=== PATIENT | male | born 1945 | race Asian ===

== ENCOUNTER 2019-03-27 11:46 | Outpatient (CLI) | payer OTHER | END 2019-03-27 23:59 | disposition home or self-care (01) | LOC: STAR 11:46 | PROVIDERS: ATTEND Neurological Surgery | DX: Z01.818 Encounter for other preprocedural examination (principal); M48.02 Spinal stenosis, cervical region | CPT/HCPCS: 36415; 71046; 80053; 81003; 85025; 85610; 85730; 93005 ==

== ENCOUNTER 2019-04-02 05:38 | Inpatient (IN) | payer OTHER ==
[~2019-04-02] VITALS: Ht 170.2 cm; Wt 66.9 kg
[2019-04-03 10:15] VITALS: BP 138/74
== END 2019-04-03 11:22 | disposition home or self-care (01) | DRG 472 ==
LOC: ORIP 05:38 → 4NOR 11:11 → DCLOUNGE 04-03 11:04
PROVIDERS: ADMIT Neurological Surgery; ATTEND Neurological Surgery
PROC: 0RG20A0 Fusion of 2 or more Cervical Vertebral Joints with Interbody Fusion Device, Anterior Approach, Anterior Column, Open Approach (ICD-10-PCS; principal; 2019-04-02)
PROC: 0RB30ZZ Excision of Cervical Vertebral Disc, Open Approach (ICD-10-PCS; 2019-04-02)
PROC: 01N10ZZ Release Cervical Nerve, Open Approach (ICD-10-PCS; 2019-04-02)
DX: M50.11 Cervical disc disorder with radiculopathy, high cervical region (principal); G95.29 Other cord compression; M47.22 Other spondylosis with radiculopathy, cervical region; M48.02 Spinal stenosis, cervical region; M19.90 Unspecified osteoarthritis, unspecified site; E11.9 Type 2 diabetes mellitus without complications; F32.9 Major depressive disorder, single episode, unspecified; K21.9 Gastro-esophageal reflux disease without esophagitis; G89.29 Other chronic pain; E78.5 Hyperlipidemia, unspecified
CPT/HCPCS: 36415; 72040; 82962; 86850; 86900; C1713; G0378; J0690; J1100; J2405; J2704; J2710; J3010; J3480; C1762; J0330; J0360; J2800; J7120

== ENCOUNTER 2019-08-28 12:35 | Outpatient (CLI) | payer OTHER ==
[~2019-08-28 12:35] MED LIST: AMIT25TA PO; AMLO-150 PO; ASPI-496 PO; ATOR40TA78 PO; CETI10CA PO; CHOL10003 PO; CYCL-259 PO; FAMO-79 PO; HYDR-36 PO; IBUP-1223 PO; LOSA100T14 PO; METF850T10 PO; METO-99 PO; PANT40TA5 PO; PRED10TA PO; SODI100P18 DT; VENL100T PO
[2019-08-28 13:50] LABS: BASOPHILS # (AUTO) 0.03 x10^3/uL (0-0.1); BASOPHILS % (AUTO) 0 % (0-1); EOSINOPHILS # (AUTO) 0.04 x10^3/uL (0-0.4); EOSINOPHILS % (AUTO) 1 % (1-7); LYMPHOCYTES # (AUTO) 1.14 x10^3/uL (1-3.4); LYMPHOCYTES % (AUTO) 14 % (22-44); MD NO; MEAN CORPUSCULAR HEMOGLOBIN 32.3 pg (27.5-34.5); MEAN CORPUSCULAR HGB CONC 33.2 g/dL (33.2-36.2); MEAN CORPUSCULAR VOLUME 97.2 fL (81-97); MEAN PLATELET VOLUME 8.2 fL (7.4-10.4); MONOCYTES # (AUTO) 0.63 x10^3/uL (0.2-0.8); MONOCYTES % (AUTO) 8 % (2-9); NEUTROPHILS # (AUTO) 6.18 x10^3/uL (1.8-6.8); NEUTROPHILS % (AUTO) 77 % (42-75); PLATELET COUNT 247 x10^3/uL (130-400); RED BLOOD COUNT 4.46 x10^6/uL (4.38-5.82); RED CELL DISTRIBUTION WIDTH 14.2 % (9.4-14.8)
[2019-08-28 14:00] LABS: INTERNATIONAL NORMALIZED RATIO 0.93 (0.93-1.1); PROTHROMBIN TIME 9.8 Seconds (9.6-11.5)
[2019-08-28 14:00] LABS: MICROSCOPIC AUTO
[2019-08-28 14:02] LABS: ALANINE AMINOTRANSFERASE 24 U/L (12-78); ANION GAP 8 mmol/L (5-15); CALCIUM 9.4 mg/dL (8.5-10.1); CHLORIDE 104 mmol/L (98-107); CREATININE 0.95 mg/dL (0.7-1.3)
[2019-08-28 14:05] LABS: ALKALINE PHOSPHATASE 70 U/L (45-117); BILIRUBIN,TOTAL 0.6 mg/dL (0.2-1.0); TOTAL PROTEIN 7.5 g/dL (6.4-8.2)
[2019-08-28 14:11] LABS: CULTURE INDICATED? YES
[2019-08-30] MEDS ORDERED: CYCL-259 PO (08:11)
== END 2019-08-28 23:59 | disposition home or self-care (01) ==
LOC: STAR 12:35
PROVIDERS: ATTEND Neurological Surgery
DX: Z01.818 Encounter for other preprocedural examination (principal); G89.4 Chronic pain syndrome; M47.894 Other spondylosis, thoracic region; I10 Essential (primary) hypertension; E11.9 Type 2 diabetes mellitus without complications
CPT/HCPCS: 36415; 71046; 80053; 81001; 85025; 85610; 85730; 87077; 87086; 87186; 93005